=== PATIENT | male | born 1995 | race Caucasian/White ===

== ENCOUNTER 2016-07-31 20:03 | Emergency (ER) | payer OTHER ==
[2016-07-31 20:15] VITALS: BP 108/77
[2016-07-31] MEDS ORDERED: Ibuprofen TAB* 600 MG PO ONE (20:54)
--- NOTE | 2016-07-31 21:46 | RAD ---
Indication: RIGHT second finger dislocation; jamming injury playing basketball. Comparison: None. Technique: 3 views RIGHT second finger REPORT AND IMPRESSION: Dorsal ulnar dislocation at the proximal interphalangeal joint. Superimposed osseous structures limits assessment. Potential impaction fracture at the base of the middle phalanx. Severe soft tissue swelling.
--- NOTE | 2016-07-31 22:22 | ED ---
Upper Extremity Pain - HPI Summary HPI Summary: Rt hand dominant pt here w/ Rt index finger injury while playing basketball tonight. Finger jammed into another player's thigh. Pain and swelling. Denies numbness and can still move finger but is painful. No other injuries to report. - History of Current Complaint Chief Complaint: EDExtremityUpper Stated Complaint: RIGHT INDEX FINGER DISLOCATION Time Seen by Provider: 07/31/16 20:54 Hx Obtained From: Patient - Allergies/Home Medications Allergies/Adverse Reactions: Allergies Allergy/AdvReac Type Severity Reaction Status Date / Time No Known Allergies Allergy Verified 07/31/16 20:13 PMH/Surg Hx/FS Hx/Imm Hx Previously Healthy: Yes Endocrine/Hematology History: Denies: Hx Anticoagulant Therapy, Hx Blood Disorders, Hx Coagulopothy Infectious Disease History: No Infectious Disease History: Denies: Traveled Outside the [place] in Last 30 Days - Family History Known Family History: Positive: None - Social History Occupation: Employed Part-time, Student Lives: With Family Alcohol Use: Weekly Hx Substance Use: No Substance Use Type: Reports: None Hx Tobacco Use: No Smoking Status (MU): Never Smoked Tobacco Review of Systems Musculoskeletal: Other - see HPI Positive: Bruising Negative: Weakness, Paresthesia, Numbness Psychological: Normal All Other Systems Reviewed And Are Negative: Yes Physical Exam Triage Information Reviewed: Yes Vital Signs On Initial Exam: Initial Vitals Temp Pulse Resp BP Pulse Ox 97.5 F 91 18 108/77 100 07/31/16 20:12 07/31/16 20:12 07/31/16 20:12 07/31/16 20:12 07/31/16 20:12 Vital Signs Reviewed: Yes Appearance: Positive: Well-Appearing, No Pain Distress, Well-Nourished Skin: Positive: Warm, Dry Head/Face: Positive: Normal Head/Face Inspection ENT: Positive: Hearing grossly normal, Pharynx normal - mucosa moist Respiratory/Lung Sounds: Positive: Breath Sounds Present Cardiovascular: Positive: Normal, Pulses are Symmetrical in both Upper and Lower Extremities Musculoskeletal: Positive: Pain @ - Right index PIP joint w/ edema and deformity - edema proximal to joint - limited ROM d/t stiffness and deformity Neurological: Positive: Normal, Sensory/Motor Intact, Alert, Oriented to Person Place, Time, CN Intact II-III Procedures - Joint Reduction Joint Reduction Site: other Specify Other Joint Reduced: Rt index finger PIP joint Conscious Sedation: No - digital block Reduction Attempts: 1 Pre-Procedure NV Exam: Yes Post Joint Reduction Film: joint splinted - pt tolerated well Diagnostics - Vital Signs Vital Signs Temp Pulse Resp BP Pulse Ox 07/31/16 20:12 97.5 F 91 18 108/77 100 - Laboratory Lab Statement: Any lab studies that have been ordered have been reviewed, and results considered in the medical decision making process. Course/Dx - Course Course Of Treatment: Pt w/ Rt index finger dislocation of PIP joint. Discussed that a fx is possibly present. Advised f/u w/ Janette and referral to hand specialist as necessary. He will wear splint until cleared to remove. - Diagnoses Provider Diagnoses: Dislocation of proximal interphalangeal joint of right index finger Discharge - Discharge Plan Condition: Stable Disposition: HOME Patient Education Materials: Finger Dislocation (ED) Referrals: [facility] [Primary Care Provider] - Additional Instructions: Rest, ice, elevate and keep splint in place until advised to remove by PCP You may take ibuprofen with food alternating with acetaminophen for pain Follow-up with PCP later next week. *If you develop numbness, streaking, fever or lack of circulation in this finger , return to ED
--- NOTE | 2016-07-31 22:46 | RAD ---
Indication: Post reduction RIGHT second finger proximal interphalangeal joint dislocation. Comparison: Prereduction exam of the same date. Technique: AP view RIGHT second finger. REPORT AND IMPRESSION: Restored alignment at the proximal interphalangeal joint in the AP projection however for assessment for articular alignment and fracture requires in orthogonal view. No fracture evident in the AP projection. Fusiform soft tissue swelling centered at the proximal interphalangeal joint.
== END 2016-07-31 22:32 | disposition home or self-care (01) ==
LOC: ED 20:03
DX: S63.280A Dislocation of proximal interphalangeal joint of right index finger, initial encounter (principal); X58.XXXA Exposure to other specified factors, initial encounter; Y93.67 Activity, basketball; Y92.89 Other specified places as the place of occurrence of the external cause
CPT/HCPCS: 26670; 73140; 99281; A9270-GY